=== PATIENT | female | born 1940 | race Caucasian/White ===

== ENCOUNTER → 2024-01-14 | Outpatient (CLI) | payer MEDICARE ==
[~2024-01-14] MED LIST: ASPI81EC; Boniva150 MG PO; CALCA500CH; CALCIUM 600 +1 EAC3 PO; CYAN1000 PO; DIPH50; DIPH50 PO; EPIN.3I IM; ERGO400; IBUP200; LORA1; MULVITA; Prozac20 MG PO; SULTRIDS PO
[2024-01-14 11:36] LABS: BASOPHILS ABSOLUTE AUTO 0.04 K/mm3 (0.00-0.23); BASOPHILS PERCENT AUTO 1 % (0-2); EOSINOPHILS ABSOLUTE AUTO 0.07 K/mm3 (0.00-0.68); EOSINOPHILS PERCENT AUTO 1 % (0-6); Hematocrit 51.1 % (33.0-51.0); Hemoglobin 16.7 g/dL (11.5-16.0); IMMATURE GRAN ABSOLUTE AUTO 0.01 K/mm3 (0.00-0.10); IMMATURE GRAN PERCENT AUTO 0 % (0-1); LYMPHOCYTES ABSOLUTE AUTO 1.16 K/mm3 (0.84-5.20); LYMPHOCYTES PERCENT AUTO 15 % (21-46); MONOCYTES ABSOLUTE AUTO 0.59 K/mm3 (0.16-1.47); MONOCYTES PERCENT AUTO 8 % (4-13); Mean Corpuscular HGB 30.8 pg (26.0-34.0); Mean Corpuscular HGB Conc 32.7 g/dL (31.5-36.5); Mean Corpuscular Volume 94 fL (80-100); Mean Platelet Volume 11.1 fL (9.1-12.4); NEUTROPHILS ABSOLUTE AUTO 5.93 K/mm3 (1.96-9.15); NEUTROPHILS PERCENT AUTO 76 % (41-73); Platelet Count 261 K/mm3 (150-400); RDW Coefficient Variation 13.9 % (11.7-14.2); RDW Standard Deviation 47.9 fL (35.1-46.3); Red Blood Cell Count 5.43 M/mm3 (3.80-5.20)
[2024-01-14 11:47] LABS: Albumin, Blood 3.8 g/dL (3.4-5.0); Bilirubin, Total 0.9 mg/dL (0.1-1.0); Bun/Creatinine Ratio 20.3 (12.0-20.0); Calcium, Blood 9.3 mg/dL (8.5-10.1); Creatinine, Blood 0.79 mg/dL (0.40-1.00); Globulin, Blood 3.9 g/dL (2.2-4.0); Potassium, Blood 4.6 mmol/L (3.5-5.5); Total Protein, Blood 7.7 g/dL (6.4-8.2)
== END | disposition home or self-care (01) ==
LOC: LAB SHORT 11:31 → LAB 11:31
PROVIDERS: Physician Assistant
DX: R09.02 Hypoxemia (principal)
CPT/HCPCS: 80053; 85025

== ENCOUNTER → 2024-02-17 | Outpatient (CLI) | payer MEDICARE, OTHER ==
[~2024-02-17] MED LIST changes: +OXAYDO5 M1
[2024-02-17 13:18] LABS: BASOPHILS ABSOLUTE AUTO 0.05 K/mm3 (0.00-0.23); BASOPHILS PERCENT AUTO 1 % (0-2); EOSINOPHILS ABSOLUTE AUTO 0.03 K/mm3 (0.00-0.68); EOSINOPHILS PERCENT AUTO 0 % (0-6); Hemoglobin 19.1 g/dL (11.5-16.0); IMMATURE GRAN ABSOLUTE AUTO 0.02 K/mm3 (0.00-0.10); IMMATURE GRAN PERCENT AUTO 0 % (0-1); LYMPHOCYTES ABSOLUTE AUTO 1.21 K/mm3 (0.84-5.20); LYMPHOCYTES PERCENT AUTO 14 % (21-46); MONOCYTES ABSOLUTE AUTO 0.76 K/mm3 (0.16-1.47); MONOCYTES PERCENT AUTO 9 % (4-13); Mean Corpuscular HGB Conc 32.6 g/dL (31.5-36.5); Mean Corpuscular Volume 95 fL (80-100); NEUTROPHILS ABSOLUTE AUTO 6.31 K/mm3 (1.96-9.15); NEUTROPHILS PERCENT AUTO 75 % (41-73); Platelet Count 214 K/mm3 (150-400); RDW Coefficient Variation 14.5 % (11.7-14.2); RDW Standard Deviation 48.8 fL (35.1-46.3); Red Blood Cell Count 6.17 M/mm3 (3.80-5.20); White Blood Cell Count 8.38 K/mm3 (4.00-11.30)
[2024-02-17 13:20] LABS: Hematocrit 58.5 % (33.0-51.0)
[2024-02-17 13:26] LABS: Albumin, Blood 3.7 g/dL (3.4-5.0); Bilirubin, Total 1.3 mg/dL (0.1-1.0); Bun/Creatinine Ratio 18.7 (12.0-20.0); Calcium, Blood 9.2 mg/dL (8.5-10.1); Creatinine, Blood 1.07 mg/dL (0.40-1.00); Globulin, Blood 3.8 g/dL (2.2-4.0); Potassium, Blood 4.4 mmol/L (3.5-5.5); Total Protein, Blood 7.5 g/dL (6.4-8.2)
== END ==
LOC: LAB 13:12 → LAB SHORT 13:12
PROVIDERS: Family Medicine
DX: R10.9 Unspecified abdominal pain (principal); R60.0 Localized edema; R82.90 Unspecified abnormal findings in urine
CPT/HCPCS: 80053; 83690; 83880; 85025; 87086; 87147

== ENCOUNTER 2024-03-04 09:35 | Inpatient (IN) | payer MEDICARE, OTHER ==
[~2024-03-04] VITALS: Ht 162.6 cm; Wt 50.5 kg
[~2024-03-04 09:35] MED LIST changes: -OXAYDO5 M1
[2024-03-04 10:28] LABS: Hematocrit 53.5 % (33.0-51.0); Hemoglobin 17.4 g/dL (11.5-16.0); Mean Corpuscular HGB 31.2 pg (26.0-34.0); Mean Corpuscular HGB Conc 32.5 g/dL (31.5-36.5); Mean Corpuscular Volume 96 fL (80-100); Mean Platelet Volume 11.5 fL (9.1-12.4); Platelet Count 180 K/mm3 (150-400); RDW Coefficient Variation 14.5 % (11.7-14.2); RDW Standard Deviation 50.9 fL (35.1-46.3); Red Blood Cell Count 5.58 M/mm3 (3.80-5.20)
[2024-03-04 10:32] LABS: EOSINOPHILS ABSOLUTE AUTO 0.03 K/mm3 (0.00-0.68); EOSINOPHILS PERCENT AUTO 0 % (0-6); LYMPHOCYTES PERCENT AUTO 8 % (21-46); MONOCYTES PERCENT AUTO 7 % (4-13); NEUTROPHILS PERCENT AUTO 84 % (41-73); White Blood Cell Count 7.89 K/mm3 (4.00-11.30)
[2024-03-04 10:48] LABS: BASOPHILS ABSOLUTE AUTO 0.04 K/mm3 (0.00-0.23); BASOPHILS PERCENT AUTO 1 % (0-2); Bun/Creatinine Ratio 29.3 (12.0-20.0); Calcium, Blood 8.7 mg/dL (8.5-10.1); Creatinine, Blood 0.82 mg/dL (0.40-1.00); IMMATURE GRAN ABSOLUTE AUTO 0.03 K/mm3 (0.00-0.10); IMMATURE GRAN PERCENT AUTO 0 % (0-1); LYMPHOCYTES ABSOLUTE AUTO 0.64 K/mm3 (0.84-5.20); MONOCYTES ABSOLUTE AUTO 0.57 K/mm3 (0.16-1.47)
[2024-03-04 12:05] LABS: Influenza A, PCR NEGATIVE (NEGATIVE); Influenza B, PCR NEGATIVE (NEGATIVE); Resp Syncytial Virus, PCR NEGATIVE (NEGATIVE); SARS-Cov-2 (COVID-19) PCR, MMC NEGATIVE (NEGATIVE)
[2024-03-04] MEDS ORDERED: Furosemide 10 MG/ML 4ML Vial IV ONE (13:00)
[2024-03-04] MEDS ORDERED: OxyCODONE HCL 5 MG TAB PO PRN (15:50)
[2024-03-04 17:13] VITALS: BP 157/111
--- NOTE | 2024-03-04 17:59 | NUR ---
ADMISSION NOTE: PATIENT ARRIVED TO THE UNIT VIA WHEELCHAIR AT 1700 ACCOMPANIED BY HER DAY. PATIENT WAS NOT ON OXYGEN WHEN SHE ARRIVED AND VOICES THAT SHE DOES NOT NEED NOT WANT IT. DID GET AN PULSE OX READ OF 94% WHEN OBTAINING VITALS. PATIENT ASSISTED TO THE [id number], CHANGED INTO A GOWN, AND SETTLED IN HER ROOM, CALL LIGHT PROVIDED. NO SIGNS OR SYMPTOMS OF DISTRESS.
[2024-03-04] MEDS ORDERED: OXAYDO5 M1 (18:07)
[2024-03-04 19:55] VITALS: BP 142/117
[2024-03-04 20:28] VITALS: BP 148/97
[2024-03-04] MEDS ORDERED: Melatonin 5 MG Tablet PO SCH (21:00)
[2024-03-05 04:20] VITALS: BP 162/96
[2024-03-05 04:49] LABS: BASOPHILS ABSOLUTE AUTO 0.03 K/mm3 (0.00-0.23); BASOPHILS PERCENT AUTO 0 % (0-2); EOSINOPHILS ABSOLUTE AUTO 0.06 K/mm3 (0.00-0.68); EOSINOPHILS PERCENT AUTO 1 % (0-6); Hematocrit 51.9 % (33.0-51.0); Hemoglobin 16.9 g/dL (11.5-16.0); IMMATURE GRAN ABSOLUTE AUTO 0.05 K/mm3 (0.00-0.10); IMMATURE GRAN PERCENT AUTO 1 % (0-1); LYMPHOCYTES ABSOLUTE AUTO 0.81 K/mm3 (0.84-5.20); LYMPHOCYTES PERCENT AUTO 9 % (21-46); MONOCYTES ABSOLUTE AUTO 0.84 K/mm3 (0.16-1.47); MONOCYTES PERCENT AUTO 10 % (4-13); Mean Corpuscular HGB 31.2 pg (26.0-34.0); Mean Corpuscular HGB Conc 32.6 g/dL (31.5-36.5); Mean Corpuscular Volume 96 fL (80-100); Mean Platelet Volume 11.5 fL (9.1-12.4); NEUTROPHILS ABSOLUTE AUTO 6.98 K/mm3 (1.96-9.15); NEUTROPHILS PERCENT AUTO 80 % (41-73); Platelet Count 179 K/mm3 (150-400); RDW Coefficient Variation 14.4 % (11.7-14.2); RDW Standard Deviation 50.4 fL (35.1-46.3); Red Blood Cell Count 5.42 M/mm3 (3.80-5.20); White Blood Cell Count 8.77 K/mm3 (4.00-11.30)
--- NOTE | 2024-03-05 05:02 | NUR ---
END OF SHIFT SUMMARY PT A&OX4. SOB WITH EXERTION. PT 85-88% ON RA, PLACED ON 2L O2 VIA NC TO MAINTAIN SATS >92. PT TO POSSIBLY HAVE THORACENTESIS TODAY. NO ACUTE EVENTS OVERNIGHT.
[2024-03-05 05:24] LABS: Bun/Creatinine Ratio 26.8 (12.0-20.0); Calcium, Blood 8.4 mg/dL (8.5-10.1); Creatinine, Blood 0.93 mg/dL (0.40-1.00); Potassium, Blood 5.1 mmol/L (3.5-5.5)
[2024-03-05 07:24] VITALS: BP 143/131
[2024-03-05 07:26] VITALS: BP 150/86
[2024-03-05] MEDS ORDERED: Furosemide 10 MG/ML 4ML Vial IV SCH (09:00)
[2024-03-05] MEDS ORDERED: Losartan Potassium 25 MG Tab PO SCH (09:00)
[2024-03-05 15:07] LABS: Automated BF RBC Count 0.002 M/mm3 (0-0); Automated BF WBC Count 0.704 K/mm3 (0-999)
[2024-03-05 15:10] LABS: Body Fluid WBC Count 704 /mm3 (0-999); RBC Count, Body Fluid 2000 /mm3 (0-0)
[2024-03-05 15:30] LABS: Albumin, Body Fluid 0.9 g/dL; Glucose, Body Fluid 127 mg/dL; Lactate Dehydrogenase, Body Fl 302 U/L; Protein, Body Fluid 1.4 g/dL
[2024-03-05 15:34] VITALS: BP 144/112
--- NOTE | 2024-03-05 15:47 | NUR ---
Pt. is awake in bed and welcomes my visit. Pt. had just returned from a procedure that removed significnat fluid form her lung. Pt. is pleasant and rapport was established as this airport ramp attendant knew one of her family members form the community. Facilitated a lengthy life review which included stories of the recent passing of her beloved father. Listen with empathy and grief ip counsel is provided. Prayed with Pt. Pt. verbalized gratitude for the spiritual care visit.
--- NOTE | 2024-03-05 15:50 | NUR ---
SHIFT SUMMARY: PATIENT IS A&OX3/SBA WITH FWW; MAKES HER NEEDS KNOWN, CAN BE CONFUSED/FORGETFUL AT TIMES. NON IMPULSIVE. SHE HAS BEEN COMPLIANT WITH WEARING OXYGEN TODAY, SWELLING IN HER LOWER EXTREMITIES ARE SLIGHTLY BETTER; PT EXPRESSES IMPROVEMENT WELL. SHE UNDERWENT HER THORACENTESIS THIS AFTERNOON; THEY REMOVED 850 ML OF FLUID AND SENT IT OFF TO LAB. PATIENT DOES NOT EXPRESS ANY DIFFERENCE SINCE THORACENTESIS. SHE IS BACK IN HER ROOM, IN BED, CALL LIGHT WITHIN REACH, NO SIGNS OR SYMPTOMS OF DISTRESS, PLAN OF CARE ONGOING. PATIENT AND HER ASKED ABOUT HAVING HER LIVER BIOPSY DONE IN PATIENT AND THIS QUESTIONS WAS RELAYED TO DR. ENGEL. THERE IS A POSSIBLITY THIS COULD BE COMPLETED INPAITENT, BUT WE DON'T HAVE A FOR SURE ANSWER AT THIS TIME.
[2024-03-05 16:07] LABS: Appearance, Body Fluid Hazy (Clear); Color, Body Fluid Yellow (None-Yellow); Total Cell Count, Body Fluid 100
--- NOTE | 2024-03-05 17:16 | NUR ---
RECEIVED CALL FROM TELE INFORMING OF 12 BEAT RUN OF [facility]. DR TY WAS CALLED AND NOTIFIED AT 1708 AND THAT THE PATIENT WAS ASYMPTOMATIC. I CHECKED ON PATIENT AND ASSESSED FOR ANY CHEST DISCOMFORT WITHIN THE LAST 15 MINS, PATIENT DENIED DISCOMFORT.
[2024-03-05 19:20] VITALS: BP 150/135
[2024-03-05 20:28] VITALS: BP 117/80
[2024-03-06 04:24] VITALS: BP 141/95
[2024-03-06 05:24] LABS: BASOPHILS ABSOLUTE AUTO 0.03 K/mm3 (0.00-0.23); BASOPHILS PERCENT AUTO 0 % (0-2); EOSINOPHILS PERCENT AUTO 1 % (0-6); Hematocrit 48.5 % (33.0-51.0); Hemoglobin 16.3 g/dL (11.5-16.0); IMMATURE GRAN ABSOLUTE AUTO 0.03 K/mm3 (0.00-0.10); IMMATURE GRAN PERCENT AUTO 0 % (0-1); LYMPHOCYTES PERCENT AUTO 13 % (21-46); MONOCYTES ABSOLUTE AUTO 1.02 K/mm3 (0.16-1.47); MONOCYTES PERCENT AUTO 13 % (4-13); Mean Corpuscular HGB 31.5 pg (26.0-34.0); Mean Corpuscular HGB Conc 33.6 g/dL (31.5-36.5); Mean Corpuscular Volume 94 fL (80-100); Mean Platelet Volume 12.4 fL (9.1-12.4); NEUTROPHILS ABSOLUTE AUTO 5.78 K/mm3 (1.96-9.15); NEUTROPHILS PERCENT AUTO 73 % (41-73); Platelet Count 172 K/mm3 (150-400); RDW Coefficient Variation 14.1 % (11.7-14.2); RDW Standard Deviation 48.3 fL (35.1-46.3); Red Blood Cell Count 5.18 M/mm3 (3.80-5.20); White Blood Cell Count 7.96 K/mm3 (4.00-11.30)
--- NOTE | 2024-03-06 05:44 | NUR ---
END OF SHIFT SUMMARY PT A&OX4. LUNGS CLEAR. CONTINUES TO HAVE SOME SOB WITH EXERTION. CURRENTLY ON 1L O2 VIA NC TO MAINTAIN SAT >92. THORACENTESIS SITE C/D/I. BLE EDEMA IMPROVING. PT ASKING IF LIVER BX WILL BE DONE PRIOR TO D/C. NO ACUTE EVENTS OVERNIGHT.
[2024-03-06 05:59] LABS: Bun/Creatinine Ratio 22.3 (12.0-20.0); Calcium, Blood 8.3 mg/dL (8.5-10.1); Creatinine, Blood 1.03 mg/dL (0.40-1.00); Potassium, Blood 4.9 mmol/L (3.5-5.5)
[2024-03-06 07:24] VITALS: BP 128/96
[2024-03-06 08:24] LABS: Albumin, Blood 2.3 g/dL (3.4-5.0); Albumin/Globulin Ratio 0.8 (0.8-1.8); Bilirubin, Direct 0.3 mg/dL (0.0-0.3); Bilirubin, Indirect 0.5 mg/dL (0.1-0.7); Bilirubin, Total 0.8 mg/dL (0.1-1.0); Globulin, Blood 2.9 g/dL (2.2-4.0); Total Protein, Blood 5.2 g/dL (6.4-8.2)
[2024-03-06] MEDS ORDERED: Metoprolol Succinate 25 MG TABCR PO SCH (11:00)
--- NOTE | 2024-03-06 11:40 | NUR ---
PT WAS GIVEN NEW DOSE OF METOPROLOL AND THIS MEDIA RELATIONS INTERN WAS SUPERVISING KAYLA QUIÑONES WITH THE FIRST DOSE GIVEN.
[2024-03-06 15:06] VITALS: BP 104/76
[2024-03-06] MEDS ORDERED: Heparin Sodium,Porcine 5,000 UNIT/0.5 ML SDV SC SCH (16:00)
--- NOTE | 2024-03-06 17:17 | NUR ---
SHIFT SUMMARY: PATIENT IS A&OX4. PATIENT IS CONTINENT. PATIENT IS ON 02 1L. STARTED ON HEPARIN SC Q8H FOR VTE PROPHYLAXIS. PATIENT USES CALL LIGHT APPROPRIATELY AND ABLE TO MAKE NEEDS KNOWN. PATIENT USES FWW FOR TRANSFERS. ON STRICT I&O. BED IS IN LOWEST POSITION AND CALL LIGHT IS WITHIN REACH.
--- NOTE | 2024-03-06 17:55 | NUR ---
THIS PIN DRAFTER HAS REVIEWED AND AGREES WITH ALL NOTES AND ASSESSMENTS BY KAYLA QUIÑONES.
[2024-03-06 19:35] VITALS: BP 107/82
[2024-03-07 02:39] VITALS: BP 142/91
[2024-03-07 04:39] LABS: BASOPHILS ABSOLUTE AUTO 0.04 K/mm3 (0.00-0.23); BASOPHILS PERCENT AUTO 1 % (0-2); EOSINOPHILS ABSOLUTE AUTO 0.06 K/mm3 (0.00-0.68); EOSINOPHILS PERCENT AUTO 1 % (0-6); Hematocrit 49.8 % (33.0-51.0); Hemoglobin 16.3 g/dL (11.5-16.0); IMMATURE GRAN ABSOLUTE AUTO 0.01 K/mm3 (0.00-0.10); IMMATURE GRAN PERCENT AUTO 0 % (0-1); LYMPHOCYTES ABSOLUTE AUTO 0.71 K/mm3 (0.84-5.20); LYMPHOCYTES PERCENT AUTO 10 % (21-46); MONOCYTES ABSOLUTE AUTO 0.94 K/mm3 (0.16-1.47); MONOCYTES PERCENT AUTO 13 % (4-13); Mean Corpuscular HGB 30.7 pg (26.0-34.0); Mean Corpuscular HGB Conc 32.7 g/dL (31.5-36.5); Mean Corpuscular Volume 94 fL (80-100); Mean Platelet Volume 11.9 fL (9.1-12.4); NEUTROPHILS ABSOLUTE AUTO 5.25 K/mm3 (1.96-9.15); NEUTROPHILS PERCENT AUTO 75 % (41-73); Platelet Count 167 K/mm3 (150-400); RDW Standard Deviation 48.4 fL (35.1-46.3); Red Blood Cell Count 5.31 M/mm3 (3.80-5.20); White Blood Cell Count 7.01 K/mm3 (4.00-11.30)
[2024-03-07 04:58] LABS: Calcium, Blood 8.3 mg/dL (8.5-10.1); Creatinine, Blood 1.04 mg/dL (0.40-1.00)
--- NOTE | 2024-03-07 05:07 | NUR ---
SHIFT SUMMARY NOC PT A/O X 4. PLEASANT AND COOPERATIVE WITH CARE. VSS. NO ACUTE CHANGES TO REPORT. PT STILL ON O2 1.5L/NC SPO2 >92%. NO C/O OF ABD PAIN. PT CALLING FOR SBA FWW WHEN GOING TO BATHROOM. ON TELE SINUS RHYTHM/PAC'S IN 80'S. Q8H DVT PROPHYLAXIS HEPARIN. PT CURRENTLY RESTING WITH BED IN LOWEST POSITION, AND CALL LIGHT WITHIN REACH.
--- NOTE | 2024-03-07 05:44 | NUR ---
NOTIFIED BY U GANG TAILER THAT PT HAD 7 BEAT RUN OF V-TACH. PT ASYMPTOMATIC AND BACK IN SINUS RHYTHM IN 80'S. HOSPITALIST NOTIFIED AND ORDER FOR MAGNESIUM LAB DRAW ORDERED.
[2024-03-07 05:54] LABS: Magnesium, Blood 2.1 mg/dL (1.6-2.4)
--- NOTE | 2024-03-07 05:54 | NUR ---
SHIFT SUMMARY NOC PT A/O X 4. PLEASANT AND COOPERATIVE WITH CARE. VSS. PT STILL ON O2 1.5L/NC SPO2 > 92%. NO C/O OF ABD PAIN. PT CALLING FOR SBA FWW WHEN GOING TO BATHROOM. ON TELE SINUS RHYTHM/PAC'S IN 80'S. PT HAD 7 BEAT RUN OF V-TACH, BUT CONVERTED BACH TO NSR IN 80'S AND ASYMPTOMATIC. HOSPITALIST NOTIFIED AND ORDER FOR MAGNESIUM LAB ORDERED. Q8H DVT PROPHYLAXIS HEPARIN. PT CURRENTLY RESTING WITH BED IN LOWEST POSITION, AND CALL LIGHT WITHIN REACH.
[2024-03-07 07:26] VITALS: BP 122/78
[2024-03-07 15:37] VITALS: BP 95/72
--- NOTE | 2024-03-07 18:38 | NUR ---
PATIENT A&OX4, MILD FORGETFULNESS. PATIENT STARTED HAVING PAIN TO RUQ THAT GOES STRAIGHT THROUGH TO HER BACK AFTER LUNCH, SHE WAS OFFERED PRN PAIN MED AT THIS TIME AND REFUSED. AFTER PATIENT HAD DINNER SHE BEGAN STATING PAIN IS WORSE AND IS 11/10. PATIENT ACCEPTED PRN PAIN MED PER EMAR. BED IN LOW POSITION AND CALL LIGHT WITHIN REACH.
--- NOTE | 2024-03-07 18:44 | NUR ---
THIS CAN OPERATOR HAS REVIEWED AND AGREES WITH ALL NOTES AND ASSESSMENTS BY KAYLA QUIÑONES.
[2024-03-07 19:58] VITALS: BP 147/83
--- NOTE | 2024-03-08 02:56 | NUR ---
SHIFT SUMMARY PT IS PLEASANT, COOPERATIVE WITH CARE. O2 1L> 92%. PT DENIES PAIN AND DISCOMFORT AND REPORTS EASIER BREATHING AFTER THORACENTESIS PROCEDURE. HS MELATONIN EFFECTIVE PER PT REPORT. NO ACUTE EVENTS/DISTRESS NOTED/REPORTED DURING THIS SHIFT. BED AT THE LOWEST POSITION, CALL LIGHT WITHIN REACH. PT IS ABLE TO MAKE HER NEEDS KNOWN.
[2024-03-08 04:19] VITALS: BP 139/125
[2024-03-08 04:54] LABS: BASOPHILS ABSOLUTE AUTO 0.05 K/mm3 (0.00-0.23); BASOPHILS PERCENT AUTO 1 % (0-2); EOSINOPHILS ABSOLUTE AUTO 0.08 K/mm3 (0.00-0.68); EOSINOPHILS PERCENT AUTO 1 % (0-6); Hematocrit 52.8 % (33.0-51.0); Hemoglobin 17.2 g/dL (11.5-16.0); IMMATURE GRAN ABSOLUTE AUTO 0.04 K/mm3 (0.00-0.10); IMMATURE GRAN PERCENT AUTO 1 % (0-1); LYMPHOCYTES ABSOLUTE AUTO 1.09 K/mm3 (0.84-5.20); LYMPHOCYTES PERCENT AUTO 15 % (21-46); MONOCYTES ABSOLUTE AUTO 0.93 K/mm3 (0.16-1.47); MONOCYTES PERCENT AUTO 13 % (4-13); Mean Corpuscular HGB 31.1 pg (26.0-34.0); Mean Corpuscular HGB Conc 32.6 g/dL (31.5-36.5); Mean Corpuscular Volume 96 fL (80-100); Mean Platelet Volume 12.1 fL (9.1-12.4); NEUTROPHILS ABSOLUTE AUTO 5.09 K/mm3 (1.96-9.15); NEUTROPHILS PERCENT AUTO 70 % (41-73); Platelet Count 170 K/mm3 (150-400); RDW Coefficient Variation 14.2 % (11.7-14.2); RDW Standard Deviation 49.7 fL (35.1-46.3); Red Blood Cell Count 5.53 M/mm3 (3.80-5.20); White Blood Cell Count 7.28 K/mm3 (4.00-11.30)
[2024-03-08 05:44] LABS: Calcium, Blood 8.5 mg/dL (8.5-10.1); Creatinine, Blood 0.96 mg/dL (0.40-1.00)
[2024-03-08 07:07] VITALS: BP 130/91
[2024-03-08 15:14] VITALS: BP 147/78
--- NOTE | 2024-03-08 16:05 | NUR ---
PT HAS BEEN AOX4 AND COOPERATIVE OF CARE. PT HAS BEEN SATING ON RA MID s. NO DISTRESS NOTED AND CURRENTLY DENIES ANY PAIN. PT CAN USE CALL LIGHT APPROPRIATELY AND IS INDEPENDENT IN ROOM WITH WALKER. WILL CONTINUE TO MONITOR.
[2024-03-08 20:44] VITALS: BP 118/69
--- NOTE | 2024-03-09 04:15 | NUR ---
NO ACUTE CHANGES OVERNIGHT. PT ON R.A DURING INITIAL ASSESSMENT SAT 84%, PLACED ON 1L NC SAT >90%. PT SBA DUE TO TELE BUT GETS AROUND VERY WELL, STEADY GAIT. ALERT AND ORIENTED X4. ABLE TO MAKE NEEDS KNOWN.
[2024-03-09 04:54] VITALS: BP 105/64
[2024-03-09 09:14] VITALS: BP 105/85
[2024-03-09] MEDS ORDERED: FURO40 PO (14:38)
[2024-03-09] MEDS ORDERED: LOSA25 PO (14:40)
[2024-03-09] MEDS ORDERED: METO25ER PO (14:42)
--- NOTE | 2024-03-09 15:25 | NUR ---
DISCHARGE NOTE PT ADMITTED DUE TO ACUTE HYPOXEMIA RESPIRATORY FAILURE. PT WAS EDUCATED ON CHF AND NEW MEDS. MEDS WERE FAXED TO [facility]. PT STATES SHE WILL FOLLOW UP WITH DR. FAULKNER AND DR. VALDOVINOS IN ONE WEEK. PT PRESENT AT DISCHARGE. PT WHEELED TO CAR BY [employer] INSTRUCTOR.
== END 2024-03-09 15:05 | disposition home or self-care (01) | DRG 291 ==
LOC: ER 09:35 → MEDS 14:00 → ENPENDDIS 03-09 13:42 → MEDS 03-09 15:05
PROVIDERS: Emergency Medicine; ADMIT Internal Medicine
PROC: 0W9B3ZZ Drainage of Left Pleural Cavity, Percutaneous Approach (ICD-10-PCS; principal; 2024-03-05)
DX: I11.0 Hypertensive heart disease with heart failure (principal); I50.41 Acute combined systolic (congestive) and diastolic (congestive) heart failure; J96.01 Acute respiratory failure with hypoxia; J90 Pleural effusion, not elsewhere classified; I27.20 Pulmonary hypertension, unspecified; J43.9 Emphysema, unspecified; F32.A Depression, unspecified; R91.8 Other nonspecific abnormal finding of lung field; Z85.3 Personal history of malignant neoplasm of breast; Z90.10 Acquired absence of unspecified breast and nipple; Z98.890 Other specified postprocedural states; Z88.0 Allergy status to penicillin; Z91.030 Bee allergy status; Z91.038 Other insect allergy status; Z79.82 Long term (current) use of aspirin; Z79.899 Other long term (current) drug therapy; M81.0 Age-related osteoporosis without current pathological fracture; Z87.891 Personal history of nicotine dependence; Z85.05 Personal history of malignant neoplasm of liver
CPT/HCPCS: 0241U; 32555; 36415; 71045; 71260; 80048; 80076; 82042; 82945; 83615; 83735; 83880; 84157; 84484; 85025; 87070; 87075; 87205; 88108; 88305; 89051; 93005; 93010; 93306; 94760; 96374-59; 99285-25; A9270; J1644; J1940; Q9967

== ENCOUNTER 2024-03-16 17:40 | Emergency (ER) | payer MEDICARE, OTHER ==
[~2024-03-16] VITALS: Ht 160 cm; Wt 49.9 kg
[~2024-03-16 17:40] MED LIST changes: +FURO40 PO; +LOSA25 PO; +METO25ER PO; +OXAYDO5 M1
[2024-03-16] MEDS ORDERED: OxyCODONE HCL 5 MG TAB PO ONE (19:30)
[2024-03-16] MEDS ORDERED: RX Prepack 6 Tabs Oxycodone 5mg UD ONE (22:15)
[2024-03-16 22:40] VITALS: BP 112/75
== END 2024-03-16 22:40 | disposition home or self-care (01) ==
LOC: ER 17:40
DX: I89.0 Lymphedema, not elsewhere classified (principal); R79.89 Other specified abnormal findings of blood chemistry; J44.9 Chronic obstructive pulmonary disease, unspecified; Z51.5 Encounter for palliative care; Z87.891 Personal history of nicotine dependence; Z79.899 Other long term (current) drug therapy; Z91.030 Bee allergy status; Z88.0 Allergy status to penicillin; I50.9 Heart failure, unspecified
CPT/HCPCS: 36415; 71046; 80053; 83880; 85025; 99283; A9270

== ENCOUNTER 2024-03-19 16:40 | Inpatient (IN) | payer MEDICARE, OTHER ==
[~2024-03-19] VITALS: Ht 162.6 cm; Wt 49.4 kg
[2024-03-19 17:11] VITALS: BP 102/80
[2024-03-19] MEDS ORDERED: BUME2 PO (17:16)
[2024-03-19] MEDS ORDERED: TRAM50 PO (17:16)
[2024-03-19] MEDS ORDERED: TraMADol HCl 50 MG Tab PO PRN (17:50)
[2024-03-19] MEDS ORDERED: Furosemide 10 MG/ML 4ML Vial IV SCH (18:00)
[2024-03-19 18:23] LABS: BASOPHILS ABSOLUTE AUTO 0.03 K/mm3 (0.00-0.23); BASOPHILS PERCENT AUTO 0 % (0-2); EOSINOPHILS ABSOLUTE AUTO 0.03 K/mm3 (0.00-0.68); EOSINOPHILS PERCENT AUTO 0 % (0-6); Hematocrit 53.6 % (33.0-51.0); Hemoglobin 17.5 g/dL (11.5-16.0); IMMATURE GRAN ABSOLUTE AUTO 0.04 K/mm3 (0.00-0.10); IMMATURE GRAN PERCENT AUTO 0 % (0-1); LYMPHOCYTES ABSOLUTE AUTO 0.65 K/mm3 (0.84-5.20); LYMPHOCYTES PERCENT AUTO 7 % (21-46); MONOCYTES ABSOLUTE AUTO 0.88 K/mm3 (0.16-1.47); MONOCYTES PERCENT AUTO 9 % (4-13); Mean Corpuscular HGB 30.9 pg (26.0-34.0); Mean Corpuscular HGB Conc 32.6 g/dL (31.5-36.5); Mean Corpuscular Volume 95 fL (80-100); Mean Platelet Volume 11.9 fL (9.1-12.4); NEUTROPHILS ABSOLUTE AUTO 8.24 K/mm3 (1.96-9.15); NEUTROPHILS PERCENT AUTO 84 % (41-73); Platelet Count 235 K/mm3 (150-400); RDW Coefficient Variation 14.8 % (11.7-14.2); RDW Standard Deviation 51.5 fL (35.1-46.3); Red Blood Cell Count 5.67 M/mm3 (3.80-5.20); White Blood Cell Count 9.87 K/mm3 (4.00-11.30)
[2024-03-19 18:37] LABS: Albumin, Blood 3.1 g/dL (3.4-5.0); Albumin/Globulin Ratio 0.9 (0.8-1.8); Bilirubin, Total 0.9 mg/dL (0.1-1.0); Bun/Creatinine Ratio 32.4 (12.0-20.0); Calcium, Blood 8.9 mg/dL (8.5-10.1); Creatinine, Blood 1.48 mg/dL (0.40-1.00); Globulin, Blood 3.6 g/dL (2.2-4.0); Potassium, Blood 4.7 mmol/L (3.5-5.5); Total Protein, Blood 6.7 g/dL (6.4-8.2)
--- NOTE | 2024-03-19 18:37 | NUR ---
SHIFT SUMMARY PT A&OX4, VSS, AMB W/ SBA, TOLERATING PO, AND PAIN MANAGED. PT PLAN TO HAVE RENAL/BLADDER ULTRASOUND. CALL LIGHT WITHIN REACH AND PT ABLE TO MAKE NEEDS KNOWN.
[2024-03-19 19:54] VITALS: BP 86/61
[2024-03-19 22:00] VITALS: BP 130/77
[2024-03-20 03:06] VITALS: BP 133/85
--- NOTE | 2024-03-20 04:52 | NUR ---
O2 SATS NOTED 81-82 ON ROOM AIR. RT AT BEDSIDE. PT RESISTANT TO USING 02. PT CONCENTED WITH MUCH ENCOURAGEMENT AND EDUCTION.PT RESTING QUIETLY THROUGH THE NIGHT. OOB UP TO BR WITH ASSIST. TOLERATED WELL.
[2024-03-20 06:20] LABS: BASOPHILS ABSOLUTE AUTO 0.05 K/mm3 (0.00-0.23); BASOPHILS PERCENT AUTO 0 % (0-2); EOSINOPHILS ABSOLUTE AUTO 0.04 K/mm3 (0.00-0.68); EOSINOPHILS PERCENT AUTO 0 % (0-6); Hematocrit 51.2 % (33.0-51.0); Hemoglobin 17.3 g/dL (11.5-16.0); IMMATURE GRAN ABSOLUTE AUTO 0.11 K/mm3 (0.00-0.10); IMMATURE GRAN PERCENT AUTO 1 % (0-1); LYMPHOCYTES ABSOLUTE AUTO 0.92 K/mm3 (0.84-5.20); LYMPHOCYTES PERCENT AUTO 8 % (21-46); MONOCYTES ABSOLUTE AUTO 1.05 K/mm3 (0.16-1.47); MONOCYTES PERCENT AUTO 9 % (4-13); Mean Corpuscular HGB 31.3 pg (26.0-34.0); Mean Corpuscular HGB Conc 33.8 g/dL (31.5-36.5); Mean Corpuscular Volume 93 fL (80-100); NEUTROPHILS ABSOLUTE AUTO 9.33 K/mm3 (1.96-9.15); NEUTROPHILS PERCENT AUTO 81 % (41-73); RDW Coefficient Variation 14.8 % (11.7-14.2); RDW Standard Deviation 50.3 fL (35.1-46.3); Red Blood Cell Count 5.52 M/mm3 (3.80-5.20)
[2024-03-20 06:38] LABS: Bun/Creatinine Ratio 28.7 (12.0-20.0); Calcium, Blood 8.8 mg/dL (8.5-10.1); Creatinine, Blood 1.67 mg/dL (0.40-1.00); Potassium, Blood 5.6 mmol/L (3.5-5.5)
[2024-03-20 07:30] VITALS: BP 124/66
[2024-03-20] MEDS ORDERED: Sodium Zirconium Cyclosilicate 10 GM Packet PO SCH (08:00)
[2024-03-20] MEDS ORDERED: Losartan Potassium 25 MG Tab PO SCH (09:00)
[2024-03-20] MEDS ORDERED: Metoprolol Succinate 25 MG TABCR PO SCH (09:00)
[2024-03-20] MEDS ORDERED: Heparin Sodium,Porcine 5,000 UNIT/0.5 ML SDV SC SCH (09:00)
[2024-03-20 09:21] LABS: Mean Platelet Volume 11.9 fL (9.1-12.4); Platelet Count 211 K/mm3 (150-400)
[2024-03-20 12:56] LABS: Bun/Creatinine Ratio 30.8 (12.0-20.0); Calcium, Blood 8.8 mg/dL (8.5-10.1); Creatinine, Blood 1.59 mg/dL (0.40-1.00)
[2024-03-20 15:13] VITALS: BP 112/71
--- NOTE | 2024-03-20 16:24 | NUR ---
SHIFT SUMMARY: PATIENT A/OX3-4, EPISODE OF FORGETFULNESS ON/OFF T/O THE DAY, BUT EASILY REDIRECTABLE. PATIENT DENIES CP/PRESSURE, SOB, N/V AND DIZZINESS. PATIENT ON TELE, SR HR IN THE HIGH 70'S TO LOW 80'S BPM. PATIENT ON 2L O2, SATTING 94-96%. PATIENT HAS GOOD APPETITE, CONTINENT OF BLADDER, AMBULATES TO BATHROOM c SBA/FWW T/O SHIFT. PATIENT RECEIVED SCHEDULED MEDS PER EMAR. VITAL SIGNS REVIEWED. BED ALARM ON FOR SAFETY. CALL LIGHT IN REACH.
[2024-03-20 19:42] VITALS: BP 101/62
[2024-03-21 02:40] VITALS: BP 142/88
[2024-03-21 05:21] LABS: BASOPHILS ABSOLUTE AUTO 0.02 K/mm3 (0.00-0.23); BASOPHILS PERCENT AUTO 0 % (0-2); EOSINOPHILS ABSOLUTE AUTO 0.02 K/mm3 (0.00-0.68); EOSINOPHILS PERCENT AUTO 0 % (0-6); Hemoglobin 16.4 g/dL (11.5-16.0); IMMATURE GRAN ABSOLUTE AUTO 0.05 K/mm3 (0.00-0.10); IMMATURE GRAN PERCENT AUTO 1 % (0-1); LYMPHOCYTES ABSOLUTE AUTO 0.55 K/mm3 (0.84-5.20); LYMPHOCYTES PERCENT AUTO 6 % (21-46); MONOCYTES ABSOLUTE AUTO 0.85 K/mm3 (0.16-1.47); MONOCYTES PERCENT AUTO 9 % (4-13); Mean Corpuscular HGB 31.8 pg (26.0-34.0); Mean Corpuscular HGB Conc 34.2 g/dL (31.5-36.5); Mean Corpuscular Volume 93 fL (80-100); NEUTROPHILS ABSOLUTE AUTO 8.13 K/mm3 (1.96-9.15); NEUTROPHILS PERCENT AUTO 85 % (41-73); Platelet Count 205 K/mm3 (150-400); RDW Coefficient Variation 14.7 % (11.7-14.2); RDW Standard Deviation 49.8 fL (35.1-46.3); Red Blood Cell Count 5.16 M/mm3 (3.80-5.20); White Blood Cell Count 9.62 K/mm3 (4.00-11.30)
[2024-03-21 05:43] LABS: Bun/Creatinine Ratio 38.1 (12.0-20.0); Calcium, Blood 8.2 mg/dL (8.5-10.1); Creatinine, Blood 1.39 mg/dL (0.40-1.00); Potassium, Blood 4.7 mmol/L (3.5-5.5)
[2024-03-21] MEDS ORDERED: Furosemide 10 MG / ML 2ML Vial IV SCH (07:00)
[2024-03-21 07:42] VITALS: BP 136/80
[2024-03-21 15:06] VITALS: BP 122/73
--- NOTE | 2024-03-21 16:46 | NUR ---
NO ACUTE CHANGES THIS SHIFT. IV DIURETICS CONTINUED. PT AMBULATING INDEPENDENTLY WITH FWW TO BATHROOM, 2L NC. PT IS ALERT AND ORIENTED X4 ABLE TO MAKE NEEDS KNOWN. DENIES PAIN, DENIES SOB WITH O2. PT IS PLEASANT AND COOPERATIVE.
[2024-03-21 19:48] VITALS: BP 103/59
[2024-03-22 03:07] VITALS: BP 131/84
--- NOTE | 2024-03-22 04:05 | NUR ---
PT ALERT AND ORIENTED X4. AFFECT PLEASANT. PT OOB AD [place] UP TO BR. PT ENCOURAGED TO USE CALL LIGHT. GAIT UNSTEADY. PT SOB WITH ACTIVITY. PT REPORTS PAIN TO RIGHT UPPER QUADRANT ABD WITH ACTIVITY. PT RESTING QUIOETLY THROUGH THE NIGHT. NO DISTRESS NOTED.
[2024-03-22 05:08] LABS: BASOPHILS ABSOLUTE AUTO 0.02 K/mm3 (0.00-0.23); BASOPHILS PERCENT AUTO 0 % (0-2); EOSINOPHILS ABSOLUTE AUTO 0.01 K/mm3 (0.00-0.68); EOSINOPHILS PERCENT AUTO 0 % (0-6); Hematocrit 48.5 % (33.0-51.0); Hemoglobin 16.4 g/dL (11.5-16.0); IMMATURE GRAN ABSOLUTE AUTO 0.04 K/mm3 (0.00-0.10); IMMATURE GRAN PERCENT AUTO 0 % (0-1); LYMPHOCYTES ABSOLUTE AUTO 0.56 K/mm3 (0.84-5.20); LYMPHOCYTES PERCENT AUTO 6 % (21-46); MONOCYTES ABSOLUTE AUTO 0.77 K/mm3 (0.16-1.47); MONOCYTES PERCENT AUTO 9 % (4-13); Mean Corpuscular HGB 31.6 pg (26.0-34.0); Mean Corpuscular HGB Conc 33.8 g/dL (31.5-36.5); Mean Corpuscular Volume 93 fL (80-100); Mean Platelet Volume 11.9 fL (9.1-12.4); NEUTROPHILS ABSOLUTE AUTO 7.69 K/mm3 (1.96-9.15); NEUTROPHILS PERCENT AUTO 85 % (41-73); Platelet Count 208 K/mm3 (150-400); RDW Coefficient Variation 14.9 % (11.7-14.2); RDW Standard Deviation 50.7 fL (35.1-46.3); Red Blood Cell Count 5.19 M/mm3 (3.80-5.20); White Blood Cell Count 9.09 K/mm3 (4.00-11.30)
[2024-03-22 05:30] LABS: Bun/Creatinine Ratio 33.3 (12.0-20.0); Calcium, Blood 8.5 mg/dL (8.5-10.1); Creatinine, Blood 1.53 mg/dL (0.40-1.00); Potassium, Blood 4.6 mmol/L (3.5-5.5)
[2024-03-22 07:22] VITALS: BP 138/78
--- NOTE | 2024-03-22 14:04 | NUR ---
Upon receiving a referral for spiritual care, I visited the patient. She is pleasant and shares about her medical problems, her dtr Kenisha who has MS and the strained relationship she has with her SO, Antony. She is tearful at times as she reflects on the shortened life span and how that will be harmful to her dtr. Patient talks about her [employer] juvencio and how she is at peace with but anxious about dying. She finds strength and hope in her juvencio. I normalized her experience, reinforced helpful attitudes and provided gentle day camp counselor and prayer. Patient responded well and showed signs of an greater peace. I will continue to remain available to patient and family.
[2024-03-22 15:35] VITALS: BP 107/67
--- NOTE | 2024-03-22 17:58 | NUR ---
PT CONT LEVEL OF CARE WITH NO ACUTE CHANGES NOTED. PT REMAINS A&OX4 AND ASSIST X1 WITH TRANSFERS THIS SHIFT. PT WORKED WITH THERAPY THIS SHIFT WHOM WANTS PT ENCOURAGED TO GET UP TO CHAIR TO EAT MEALS. PT STATED THAT SHE UNDERSTANDS AND WILL TRY EVEN THOUGH ITS CONVENIENT FOR HER TO EAT IN BED. PLAN IS FOR PT TO STAY FOR A COUPLE MORE DAYS TO DIURESIS THEN DC HOME WITH HOME HEALTH.
[2024-03-22 19:28] VITALS: BP 121/68
[2024-03-22] MEDS ORDERED: Melatonin 5 MG Tablet PO SCH (21:20)
[2024-03-23 02:57] VITALS: BP 131/82
[2024-03-23 05:12] LABS: BASOPHILS ABSOLUTE AUTO 0.02 K/mm3 (0.00-0.23); BASOPHILS PERCENT AUTO 0 % (0-2); EOSINOPHILS ABSOLUTE AUTO 0.01 K/mm3 (0.00-0.68); EOSINOPHILS PERCENT AUTO 0 % (0-6); Hemoglobin 16.1 g/dL (11.5-16.0); IMMATURE GRAN ABSOLUTE AUTO 0.07 K/mm3 (0.00-0.10); IMMATURE GRAN PERCENT AUTO 1 % (0-1); LYMPHOCYTES ABSOLUTE AUTO 0.63 K/mm3 (0.84-5.20); LYMPHOCYTES PERCENT AUTO 7 % (21-46); MONOCYTES ABSOLUTE AUTO 0.93 K/mm3 (0.16-1.47); MONOCYTES PERCENT AUTO 10 % (4-13); Mean Corpuscular HGB Conc 33.5 g/dL (31.5-36.5); Mean Corpuscular Volume 93 fL (80-100); Mean Platelet Volume 11.5 fL (9.1-12.4); NEUTROPHILS ABSOLUTE AUTO 8.05 K/mm3 (1.96-9.15); NEUTROPHILS PERCENT AUTO 83 % (41-73); Platelet Count 208 K/mm3 (150-400); RDW Coefficient Variation 14.9 % (11.7-14.2); RDW Standard Deviation 50.8 fL (35.1-46.3); Red Blood Cell Count 5.19 M/mm3 (3.80-5.20); White Blood Cell Count 9.71 K/mm3 (4.00-11.30)
[2024-03-23 05:38] LABS: Bun/Creatinine Ratio 31.5 (12.0-20.0); Calcium, Blood 8.7 mg/dL (8.5-10.1); Creatinine, Blood 1.46 mg/dL (0.40-1.00); Potassium, Blood 4.4 mmol/L (3.5-5.5)
--- NOTE | 2024-03-23 06:13 | NUR ---
Shift Summary No acute changes. Pt states he ankles are looking much impoved. She says they were very swollen on admit and now they have 0 to trace edema. She is 1 SBA to the BR, AOX4. She had one 8 beat run of V-TACH during the night, asymptomatic.
[2024-03-23 07:51] VITALS: BP 111/83
[2024-03-23 15:48] VITALS: BP 128/66
--- NOTE | 2024-03-23 18:49 | NUR ---
SHIFT SUMMARY PATIENT DECLINES PAIN MEDICATION THIS SHIFT, KPAD TO LOWER BACK WITH GOOD PAIN RELIEF. DENIES NAUSEA AND SHORTNESS OF BREATH. MAINTAINING OXYGEN SATURATION ABOVE 90% ON 1.5L/NC. WORKED WITH PT, UP SBA TO BR WITH FWW. FORGETFUL AT TIMES, PLEASANT AND COOPERATIVE WITH CARE.
[2024-03-23 19:26] VITALS: BP 101/42
[2024-03-23 19:28] VITALS: BP 103/56
[2024-03-24 03:54] VITALS: BP 135/80
--- NOTE | 2024-03-24 06:13 | NUR ---
Shift Summary No acute changes this shift. Pt continuing to diurese, able to void without issues. 1 SBA to BR. She rcvd melatonin and tramadol before bed and slept well t/o most of the night. During the night she woke up with back pain, I placed a heating pad behind her back which she states relieved the pain and she was able to go back to sleep.
[2024-03-24 07:31] LABS: BASOPHILS ABSOLUTE AUTO 0.01 K/mm3 (0.00-0.23); BASOPHILS PERCENT AUTO 0 % (0-2); EOSINOPHILS ABSOLUTE AUTO 0.01 K/mm3 (0.00-0.68); EOSINOPHILS PERCENT AUTO 0 % (0-6); Hematocrit 44.7 % (33.0-51.0); Hemoglobin 14.7 g/dL (11.5-16.0); IMMATURE GRAN ABSOLUTE AUTO 0.05 K/mm3 (0.00-0.10); IMMATURE GRAN PERCENT AUTO 1 % (0-1); LYMPHOCYTES ABSOLUTE AUTO 0.45 K/mm3 (0.84-5.20); LYMPHOCYTES PERCENT AUTO 4 % (21-46); MONOCYTES ABSOLUTE AUTO 1.08 K/mm3 (0.16-1.47); MONOCYTES PERCENT AUTO 10 % (4-13); Mean Corpuscular HGB 30.8 pg (26.0-34.0); Mean Corpuscular HGB Conc 32.9 g/dL (31.5-36.5); Mean Corpuscular Volume 94 fL (80-100); Mean Platelet Volume 12.1 fL (9.1-12.4); NEUTROPHILS ABSOLUTE AUTO 9.16 K/mm3 (1.96-9.15); NEUTROPHILS PERCENT AUTO 85 % (41-73); Platelet Count 215 K/mm3 (150-400); RDW Coefficient Variation 15.1 % (11.7-14.2); RDW Standard Deviation 51.8 fL (35.1-46.3); Red Blood Cell Count 4.77 M/mm3 (3.80-5.20); White Blood Cell Count 10.76 K/mm3 (4.00-11.30)
[2024-03-24 07:33] VITALS: BP 113/65
[2024-03-24 07:50] LABS: Bun/Creatinine Ratio 32.8 (12.0-20.0); Calcium, Blood 8.3 mg/dL (8.5-10.1); Creatinine, Blood 1.34 mg/dL (0.40-1.00); Potassium, Blood 4.2 mmol/L (3.5-5.5)
[2024-03-24 15:36] VITALS: BP 113/67
--- NOTE | 2024-03-24 17:47 | NUR ---
SHIFT SUMMARY PT AOX4, FORGETFUL AT TIMES. 1 ASSIST TO THE BR. CALLS AND MAKES HER NEEDS KNOWN. WILL BE MEDICATED FOR PAIN PER THE EMAR. PT REPOSTIONS HERSELF IN BED. AT THE BS. LE EDEMA HAS IMPROVED. NO EVENTS PER TELE. SHE REMAINS ON 1.5L SATING 91%. CALL LIGHT WITHIN REACH, BED LOCKED AND IN THE LOWEST POSITION. WILL REPORT TO ONCOMING NURSE.
[2024-03-24 19:24] VITALS: BP 114/66
[2024-03-25 04:01] VITALS: BP 149/89
--- NOTE | 2024-03-25 05:42 | NUR ---
NOTES PT A&O X4, VSS; SBP 114 - 149, SR WITH RATE IN 80'S - NO TELE EVENTS THIS SHIFT. AFEBRILE, REMAINS ON 1.5 LPM NC WITH SPO2 93%. AT START OF SHIFT, PT C/O ABDOMINAL PAIN 12/14. MEDICATION PER EMAR WITH ADEQUATE RELIEF, PT ABLE TO REST THROUGH THE NIGHT. NO ACUTE EVENTS. PT SBA WITH FWW TO RESTROOM, VOIDING WELL. TOLERATING PO INTAKE. BLE EDEMA IMPROVING. ABLE TO MAKE NEEDS KNOWN, CALL LIGHT IN REACH. WILL UPDATE ONCOMING RN.
[2024-03-25 07:29] VITALS: BP 115/76
[2024-03-25 14:34] VITALS: BP 118/66
[2024-03-25 19:20] VITALS: BP 95/67
[2024-03-26 02:48] VITALS: BP 115/68
--- NOTE | 2024-03-26 05:10 | NUR ---
Rn shift summary: Patient is alert and oriented but forgetful. She has rested well this shift. Pt is a SBA with FWW. Pt remains on 1.5 L of O2. Lung sounds were sl coarse and diminished throughout. Tele has shown SR with no reported events. 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 Plan is for a liver biopsy as an outpt. Plan is also for pt to discharge home with Home health. Pt uses call light appropriately. Will continue to monitor and assist as needed.
[2024-03-26 07:11] VITALS: BP 119/75
--- NOTE | 2024-03-26 15:12 | NUR ---
DISCHARGE SUMMARY: PT DISCHARGED TO HOME TODAY. SPOUSE ARRIVED TO TAKE PT HOME. PT AND SPOUSE EDUCATED ON DISCHARGE MEDICATIONS/PARAMETERS AND INSTRUCTIONS. PT ADVISED TO MAKE APPT WITH PCP TODAY BEFORE 5 PM FOR NEXT WEEK. PT/SPOUSE V/U. HOME O2 DELIVERED BY KAITLYN CARRION AND HE EDUCATED SPOUSE AND PT ON OXYGEN USE. ASSISTED PT WITH GETTING DRESSED AND PACKING UP BELONGINGS. PT ESCORTED TO POV VIA WHEELCHAIR WITH OXYGEN ON AT 2 LPM VIA NC BY SPOUSE.
== END 2024-03-26 14:55 | disposition home health service (06) | DRG 682 ==
LOC: MEDS 16:42
PROVIDERS: ADMIT Internal Medicine
DX: N17.9 Acute kidney failure, unspecified (principal); I50.23 Acute on chronic systolic (congestive) heart failure; J96.01 Acute respiratory failure with hypoxia; C78.7 Secondary malignant neoplasm of liver and intrahepatic bile duct; C34.12 Malignant neoplasm of upper lobe, left bronchus or lung; J91.0 Malignant pleural effusion; Z66 Do not resuscitate; F32.A Depression, unspecified; G89.3 Neoplasm related pain (acute) (chronic); E87.5 Hyperkalemia; Z85.3 Personal history of malignant neoplasm of breast; Z90.10 Acquired absence of unspecified breast and nipple; Z98.890 Other specified postprocedural states; Z88.0 Allergy status to penicillin; Z88.6 Allergy status to analgesic agent; Z91.038 Other insect allergy status; Z79.899 Other long term (current) drug therapy
CPT/HCPCS: 36415; 76770; 80048; 80053; 84300; 84540; 85025; 85049; 94760; 94761; 97110; 97116; 97161; 97530; A9270; J1644; J1940

== ENCOUNTER 2024-04-01 19:37 | Inpatient (IN) | payer MEDICARE, OTHER ==
[~2024-04-01] VITALS: Ht 167.6 cm; Wt 49.0 kg
[~2024-04-01 19:37] MED LIST changes: +BUME2 PO; +TRAM50 PO
[2024-04-01] MEDS ORDERED: Ondansetron HCl 2 MG / ML 2ML Vial IV PRN (19:50)
[2024-04-01 20:08] LABS: pH Blood Venous 7.26 (7.34-7.37)
[2024-04-01 20:09] LABS: Bicarbonate Venous 20.4 mmol/L (24.0-30.0); PCO2 Venous 53.1 mmHg (38-42)
[2024-04-01 21:04] LABS: Hematocrit 48.2 % (33.0-51.0); Hemoglobin 16.3 g/dL (11.5-16.0); Mean Corpuscular HGB 31.5 pg (26.0-34.0); Mean Corpuscular HGB Conc 33.8 g/dL (31.5-36.5); Mean Corpuscular Volume 93 fL (80-100); Mean Platelet Volume 11.2 fL (9.1-12.4); NRBC ABSOLUTE 0.02 K/mm3 (0.00-0.02); NRBC Auto 0.1 /100 WBC (0.0-0.2); Platelet Count 151 K/mm3 (150-400); RDW Coefficient Variation 16.9 % (11.7-14.2); RDW Standard Deviation 55.2 fL (35.1-46.3); Red Blood Cell Count 5.18 M/mm3 (3.80-5.20); White Blood Cell Count 14.23 K/mm3 (4.00-11.30)
[2024-04-01 21:19] LABS: International Normalized Ratio 1.25; Prothrombin Time Results 13.2 Sec (9.7-11.5)
[2024-04-01 21:24] LABS: Albumin, Blood 2.7 g/dL (3.4-5.0); Albumin/Globulin Ratio 0.9 (0.8-1.8); Bun/Creatinine Ratio 32.2 (12.0-20.0); Calcium, Blood 7.7 mg/dL (8.5-10.1); Creatinine, Blood 3.66 mg/dL (0.40-1.00); Potassium, Blood 5.8 mmol/L (3.5-5.5); Total Protein, Blood 5.7 g/dL (6.4-8.2)
[2024-04-01 21:30] LABS: BAND PERCENT MAN 13 % (0-8); BASOPHILS PERCENT MAN 0 % (0-2); EOSINOPHILS PERCENT MAN 0 % (0-6); LYMPHOCYTES % ATYPICAL MANUAL 2 % (0-0); LYMPHOCYTES ABSOLUTE MAN 0.42 K/mm3 (0.84-5.20); LYMPHOCYTES PERCENT MAN 1 % (21-46); MONOCYTES ABSOLUTE MAN 0.28 K/mm3 (0.16-1.47); MONOCYTES PERCENT MAN 2 % (4-13); NEUTROPHILS ABSOLUTE MAN 13.51 K/mm3 (1.96-9.15); SEG NEUTROPHILS PERCENT MAN 82 % (41-73); TOTAL CELLS COUNTED 100
[2024-04-01] MEDS ORDERED: TraMADol HCl 50 MG Tab PO ONE (21:30)
[2024-04-01] MEDS ORDERED: NS 1,000 ML IV SCH (21:55)
[2024-04-01] MEDS ORDERED: Acetaminophen 650 MG Supp PR PRN (23:10)
[2024-04-01] MEDS ORDERED: FLU VACC TS2024-25(6MOS UP)/PF 45 MCG/0.5 ML SYRINGE IM ONE (23:10)
[2024-04-01] MEDS ORDERED: Acetaminophen 325 MG TABLET PO PRN (23:10)
[2024-04-01] MEDS ORDERED: Morphine Sulfate 10 MG/ML 1MLSYR INH PRN (23:20)
[2024-04-01] MEDS ORDERED: Haloperidol Lactate Inj. 5 MG/ML Injection IV PRN (23:20)
[2024-04-01] MEDS ORDERED: Promethazine HCl 25 MG Supp PR PRN (23:20)
[2024-04-01] MEDS ORDERED: Atropine Sulfate 1% Opth Soln 2ML BTL SL PRN (23:20)
[2024-04-01] MEDS ORDERED: Promethazine HCl 25 MG Tab PO PRN (23:20)
[2024-04-02] VITALS: BP 99/58
[2024-04-02] MEDS ORDERED: HYDROmorphone HCl 2 MG Tab PO PRN (01:20)
[2024-04-02] MEDS ORDERED: Omeprazole 20 MG CapCR PO SCH (06:00)
[2024-04-02] MEDS ORDERED: LORazepam 1 MG Tab PO PRN (09:30)
[2024-04-02] MEDS ORDERED: Morphine Sulfate 20 MG/1ML 1 ML Oral Syringe SL PRN (09:30)
[2024-04-02] MEDS ORDERED: FentaNYL 25 MCG Patch TOP SCH (09:30)
[2024-04-02] MEDS ORDERED: Scopolamine Hydrobromide Patch TOP PRN (09:30)
[2024-04-02] MEDS ORDERED: Ondansetron HCl 2 MG / ML 2ML Vial IV PRN (09:30)
--- NOTE | 2024-04-02 14:31 | NUR ---
"Spiritual Care | Comfort Care and Pt. Request Pt. is mostly not responsive and displays evidence of great pain. Based on previous visits, this transfer man offered prayer on behalf of the Pt. Again, other than an occasion groan this Pt. did not verbalize anything this visit. Will remain available to Pt. and family should they visit."
--- NOTE | 2024-04-02 15:23 | NUR ---
SHIFT/FINAL NOTE: PATIENT ON CC MEASURE. PATIENT RESPONDS TO PAIN AND VERBAL STIMULI. ANXIOUS AT TIMES. PATIENT REPORTS PAIN TO ABDOMEN AND NAUSEOUS, BUT NO VOMITING THIS SHIFT. PATIENT REPOSITIONED AND MEDICATED FOR COMFORT PER EMAR. ORAL CARE DONE. PATIENT ON 2L O2 VIA NC FOR COMFORT. PATIENT BILAT HANDS FINGER TIPS AND BILAT FEET HAS PURPLE DISCOLORATIONS AND COLD TO THE TOUCH. PATIENT SPOUSE CAME BY THIS AM, UPDATE GIVEN TO SPOUSE REGARDING PLAN OF CARE. PALLIATIVE CARE RNSWEETIE SPOKE TO SPOUSE OVER THE PHONE AND LEFT A MESSAGE TO DAUGHTER. AT AROUND 1455 PATIENT HAD AGONAL BREATHING. THIS RN NOTIFIED PALLIATIVE CARE RNSWEETIE REGARDING PATIENT CONDITION. BRENNAN PITT CAME TO SEE PATIENT IN ROOM. THIS RN ASSESS PATIENT, NO PALPABLE CAROTID AND APICAL PULSES THROUGH AUSULTATION. NOTIFIED CHARGED RNNILS AND VERIFIED PATIENT TOD 1500. DR. ENGEL WAS NOTIFIED c PATIENT TOD.
--- NOTE | 2024-04-02 17:02 | NUR ---
FINAL NOTE: POST MORTEM CARE COMPLETED. PATIENT PIV TO RAC DC'D. PATIENT DISCHARGING sheila KING TO John GONZALEZ, ISSUING OPERATOR, NILS WAS NOTIFIED c THIS ISSUE. PATIENT LEFT THE ROOM AT 1701, TRANSPORTED VIA GURNEY BY ALEXANDRA SANCHEZ [facility] PRODUCT/INDUSTRY CONSULTANT.
--- NOTE | 2024-04-02 17:03 | NUR ---
ASSESSED PATIENT THIS MORNING PATIENT WAS UNCOMFORTABLE. DISCUSSED MEDICATIONS WITH PROVIDER AND UPDATED ORDERS TO PROVIDE BETTER SYMPTOM MANAGMENT. CALLED THIS AFTERNOON TO UPDATE ON PATIENTS CONDITION. PATIENT PASSED THIS AFTERNOON. CALLED TO NOTIFY.
== END 2024-04-02 15:00 | DRG 951 ==
LOC: ER 19:37 → ERHOLD 23:07 → MEDS 23:07
PROVIDERS: Emergency Medicine; ADMIT Student in an Organized Health Care Education/Training Program
DX: Z51.5 Encounter for palliative care (principal); K92.0 Hematemesis; R64 Cachexia; Z68.1 Body mass index [BMI] 19.9 or less, adult; I50.22 Chronic systolic (congestive) heart failure; C78.7 Secondary malignant neoplasm of liver and intrahepatic bile duct; C78.02 Secondary malignant neoplasm of left lung; C78.89 Secondary malignant neoplasm of other digestive organs; Z66 Do not resuscitate; I95.9 Hypotension, unspecified; E87.5 Hyperkalemia; E86.0 Dehydration; M81.0 Age-related osteoporosis without current pathological fracture; F32.A Depression, unspecified; J44.9 Chronic obstructive pulmonary disease, unspecified; E60 Dietary zinc deficiency; R59.0 Localized enlarged lymph nodes; C80.1 Malignant (primary) neoplasm, unspecified; Z91.030 Bee allergy status; Z91.038 Other insect allergy status; Z88.5 Allergy status to narcotic agent; Z88.0 Allergy status to penicillin; Z85.3 Personal history of malignant neoplasm of breast; Z85.828 Personal history of other malignant neoplasm of skin; Z87.891 Personal history of nicotine dependence
CPT/HCPCS: 80053; 82803; 85025; 85610; 85730; 86850; 86900; 86901; 93005; 93010; 96361; 96374; 99285-25; A9270; J2405; J7030